=== PATIENT | female | born 1975 | race Caucasian/White ===

== ENCOUNTER 2016-05-24 18:19 | Emergency (ER) | payer SELFPAY ==
[~2016-05-24] VITALS: Ht 157.5 cm; Wt 97.5 kg
[~2016-05-24 18:19] MED LIST: LOPE2TAB27 PO; ONDA4TAB7 PO; SULF1TAB24 PO
[2016-05-24] MEDS ORDERED: DIPHTH,PERTUSS(ACELL),TET TOX 0.5 ML DISP.SYRIN. VAX IM ONE (19:30)
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
[2016-05-24 20:33] VITALS: BP 123/83
[2016-05-24] MEDS ORDERED: CEPH-264 PO (20:33)
[2016-05-24] MEDS ORDERED: HYDR-2666 PO (20:33)
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
--- NOTE | 2016-05-25 08:08 | RAD ---
Left tibia and fibula, 2 views, 05/24/2016: History: Fall, injuries No fracture or bony abnormality is detected. Minimal subcutaneous edema is noted. IMPRESSION: No acute bony abnormality is detected. Left shoulder, 3 views, 05/24/2016: No fracture or dislocation is identified. The periarticular soft tissues are unremarkable. IMPRESSION: No acute left shoulder abnormality is detected.
--- NOTE | 2016-05-25 08:09 | RAD ---
Chest, 2 views, 05/24/2016: History: Fall, injuries Comparison is made to a study from 04/04/2011. The heart size and pulmonary vascularity are normal. No pulmonary infiltrates are seen. There is no evidence of pleural fluid. Minimal spurring is present in the spine. IMPRESSION: No acute cardiopulmonary abnormality is detected.
== END 2016-05-24 20:45 | disposition home or self-care (01) ==
LOC: ER 18:19
DX: M25.512 Pain in left shoulder (principal); R07.89 Other chest pain; L03.116 Cellulitis of left lower limb; M54.2 Cervicalgia; F15.10 Other stimulant abuse, uncomplicated; F32.9 Major depressive disorder, single episode, unspecified; Z88.5 Allergy status to narcotic agent; V49.40XA Driver injured in collision with unspecified motor vehicles in traffic accident, initial encounter; Y93.I9 Activity, other involving external motion; Y92.410 Unspecified street and highway as the place of occurrence of the external cause; Y99.8 Other external cause status
CPT/HCPCS: 71020; 72125; 73030; 73590; 90471; 90715; 99284-25

== ENCOUNTER 2016-09-09 12:47 | Emergency (ER) | payer SELFPAY ==
[~2016-09-09 12:47] MED LIST changes: +CEPH-264 PO; +HYDR-2758 PO
--- NOTE | 2016-09-09 13:34 | PHYS DOC ---
Past Medical History Past Medical History: Depression Past Surgical History: Tubal ligation Alcohol Use: None Drug Use: Methadone Adult General Chief Complaint Chief Complaint: LOWER EXT PAIN [facility] HPI Patient is a 40 year old female presents to the emergency department stating that she fell at the [employer] in May and he states here complaining of the same issues that she had when she fell. She states that she fell down a flight of stairs and scraped her right thigh in her left lower leg. She states that she was provided with pain medication at that time. She is out of pain medication and does not have a primary care physician to follow up with. Patient states that she's been taking her mother's Lortab in which she's been sneaking from her. She states that she is able to ambulate with a good steady gait. She states that she has increased pain in her right hip that radiates down into her leg. She continues to state that if she sits on the toilet to long she has increased leg pain. Patient denies any new injuries to the either legs. Review of Systems Review of Systems Constitutional: Denies fever or chills [] Eyes: Denies change in visual acuity, redness, or eye pain [] HENT: Denies nasal congestion or sore throat [] Respiratory: Denies cough or shortness of breath [] Cardiovascular: No additional information not addressed in HPI [] GI: Denies abdominal pain, nausea, vomiting, bloody stools or diarrhea [] : Denies dysuria or hematuria [] Musculoskeletal: Denies back pain. Right upper leg pain, left lower leg pain Integument: Denies rash or skin lesions [] Neurologic: Denies headache, focal weakness or sensory changes [] Endocrine: Denies polyuria or polydipsia [] Allergies Allergies Allergies Coded Allergies Type Severity Reaction Last Updated Verified codeine Allergy Intermediate Vomiting 05/24/16 Yes Physical Exam Physical Exam Constitutional: Well developed, well nourished, no acute distress, non-toxic appearance. [] HENT: Normocephalic, atraumatic, bilateral external ears normal, oropharynx moist, no oral exudates, nose normal. [] Eyes: PERRLA, EOMI, conjunctiva normal, no discharge. [] Neck: Normal range of motion, no tenderness, supple, no stridor. [] Cardiovascular:Heart rate regular rhythm, no murmur [] Lungs & Thorax: Bilateral breath sounds clear to auscultation [] Skin: Warm, dry, no erythema, no rash. [] Back: No tenderness Extremities: Right upper leg tenderness, left lower leg tenderness no cyanosis, no clubbing, ROM intact, no edema. No bruising no discoloration to either legs. Peripheral pulses 2+ cap refill brisk less than 2 seconds. Patient is able to ambulate with a good steady gait. Neurologic: Alert and oriented X 3, normal motor function, normal sensory function, no focal deficits noted. [] Psychologic: Affect normal, judgement normal, mood normal. [] EKG EKG [] Radiology/Procedures Radiology/Procedures [] Course & Med Decision Making Course & Med Decision Making Pertinent Labs and Imaging studies reviewed. (See chart for details) Upon providing patient with instructions and explanation as to discomfort in assessment findings. Family member, daughter, interrupts with each instruction and provides her with different instructions. Spoke with patient in regards to she was here to see the provider not the daughter to provide her with medical care. Stated that I would provide her with her discharge instructions. Daughter became irritated stating to the provider I hope you get paid more. Provided stated discharge instructions will be provided shortly. Patient and daughter then left prior to receiving discharge instructions. [] Dragon Disclaimer Dragon Disclaimer This electronic medical record was generated, in whole or in part, using a voice recognition dictation system. Departure Departure Impression: Primary Impression: Bilateral leg pain Additional Impression: At risk for elopement Disposition: 01 HOME, SELF-CARE Condition: STABLE Referrals: NO PCP (PCP) Patient Instructions: Pain, Neuropathic-Brief Additional Instructions: Recommended Tylenol or ibuprofen for pain and discomfort. Elevation as much as possible. Follow-up with primary care physician in the next 3-5 days. Patient will be provided with a doctor's list. Return back to emergency department sign symptoms of become worse. Problem Qualifiers JEANNE EMMANUEL APRN Sep 09, 2016 13:34
== END 2016-09-09 13:29 | disposition left against medical advice (07) ==
LOC: ER 12:47
DX: M25.551 Pain in right hip (principal); M79.605 Pain in left leg; M79.604 Pain in right leg; F32.9 Major depressive disorder, single episode, unspecified; F15.10 Other stimulant abuse, uncomplicated; Z88.5 Allergy status to narcotic agent; Z98.51 Tubal ligation status
CPT/HCPCS: 99281

== ENCOUNTER 2017-04-29 17:15 | Emergency (ER) | payer SELFPAY | END 2017-04-29 17:58 | disposition home or self-care (01) | LOC: ER 17:15 | DX: J40 Bronchitis, not specified as acute or chronic (principal); F32.9 Major depressive disorder, single episode, unspecified; F15.10 Other stimulant abuse, uncomplicated; Z98.51 Tubal ligation status; Z88.5 Allergy status to narcotic agent | CPT/HCPCS: 99283 ==